=== PATIENT | male | born 1985 ===

== ENCOUNTER 2017-10-28 07:26 | Emergency (ER) | payer OTHER ==
[2017-10-28 07:29] VITALS: BP 123/81; PULSE 67; RESP 18; TEMP 98.4; O2SAT 97
[2017-10-28] MEDS ORDERED: Fluorescein 1 mg Ophthalmic Strip OU ONE (07:45)
[2017-10-28] MEDS ORDERED: Tetracaine 0.5% Ophth 2 ML BOTTLE OU ONE (07:45)
--- NOTE | 2017-10-28 07:50 | C.PDOC ---
History Of Present Illness 32 yo male, presents with b/l eye pain (L>R). pt states glass on bus shattered. denies any other injury or complaint. no blurry vision Time Seen by Provider: 10/28/17 07:35 Chief Complaint (Nursing): Eye Problem Past Medical History Reviewed: Historical Data, Nursing Documentation, Vital Signs Vital Signs: Last Vital Signs Temp 98.4 F 10/28/17 07:28 Pulse 67 10/28/17 07:28 Resp 18 10/28/17 07:28 BP 123/81 10/28/17 07:28 Pulse Ox 97 10/28/17 07:50 Family History: States: Unknown Family Hx - Social History Hx Alcohol Use: No Hx Substance Use: No - Immunization History Hx Tetanus Toxoid Vaccination: Yes (2 years ago) Hx Influenza Vaccination: No Hx Pneumococcal Vaccination: No Review Of Systems Except As Marked, All Systems Reviewed And Found Negative. Eyes: Positive for: Pain Physical Exam - Physical Exam Appears: Well, No Acute Distress Skin: Normal Color, Warm, Dry Eye(s): bilateral: Normal Inspection, PERRL, EOMI, left: Other (no erythema, eomi, no visualized foreign body. ) Nose: Normal Throat: Normal Neck: Normal Cardiovascular: Rhythm Regular Respiratory: Normal Breath Sounds Gastrointestinal/Abdominal: Normal Exam Back: Normal Inspection Extremity: Normal ROM ED Course And Treatment O2 Sat by Pulse Oximetry: 97 Medical Decision Making Medical Decision Making: no visualized foreign body with slit lamp. mild increased flurocin to left eye 6oclock. advise outpt [facility] op[facility] Disposition - Disposition Referrals: Vick Sosa MD [Staff Provider] - Disposition: HOME/ ROUTINE Disposition Time: 08:17 Condition: STABLE Additional Instructions: follow up with eye doctor. return to er with worsening symptoms or concerns. Prescriptions: Polymyxin/Trimethoprim Sulfate [Polytrim Ophth Soln] 1 drop LEFTEYE Q4 #1 bottle Forms: [employer] (Malay) Print Language: ROMANIAN - Clinical Impression Clinical Impression: Corneal abrasion
[2017-10-28] MEDS ORDERED: Fluorescein 1 mg Ophthalmic Strip ONE (07:56)
[2017-10-28] MEDS ORDERED: Tetracaine 0.5% Ophth (OR ONLY) ONE (07:57)
== END 2017-10-28 08:26 | disposition home or self-care (01) ==
LOC: C.ER 07:26
DX: S05.02XA Injury of conjunctiva and corneal abrasion without foreign body, left eye, initial encounter (principal); X58.XXXA Exposure to other specified factors, initial encounter